=== PATIENT | male | born 1970 | race Caucasian/White ===

== ENCOUNTER 2018-12-27 18:26 | Emergency (ER) | payer OTHER ==
[~2018-12-27] VITALS: Ht 175.3 cm; Wt 97.3 kg
--- NOTE | 2018-12-27 18:45 | NUR ---
PT RESTING COMFORTABLE IN ROOM. NO ORDERS YET
--- NOTE | 2018-12-27 18:50 | NUR ---
PT WAS HIKING, TRIPPED OVER A ROOT AND FELL ON RIGHT ARM. NO OTHER COMPLAINTS. NO VISIBLE INJURIES.
--- NOTE | 2018-12-27 18:59 | NUR ---
FELL APPROX 6 HOURS AGO, ATE SANDWHICH 2 HOURS AGO AND HAS BEEN DRINKING WATER SINCE. NPO CURRENTLY
[2018-12-27 19:39] VITALS: BP 160/80
--- NOTE | 2018-12-27 20:01 | NUR ---
DC RN: PT SPLINT APPLIED AND CHECKED FOR CMS+. PT GIVEN SPLINT EDUCATIONS AND VERBALIZED UNDERSTANDING. PT TO BE SEEN BY [facility] PRIOR TO DC. Patient/Caregiver given discharge instructions and they have confirmed that they understand the instructions. Patient ambulatory with steady gait.
--- NOTE | 2018-12-27 20:22 | NUR ---
[facility] AT BEDSIDE
--- NOTE | 2018-12-27 20:25 | NUR ---
PT AWARE OF FOLLOW-UP, HAS COPY OF FILMS ON DISC, PT LIVES [facility]. AWARE OF F/U THERE, AWARE OF CARE OF SPLINT, CSM CHECKS, USE OF ICE. AMBULATE OUT WITH STEADY GAIT, FRIENDS TO DRIVE PT.
== END 2018-12-27 20:36 | disposition home or self-care (01) ==
LOC: ED 20:19
DX: S42.341A Displaced spiral fracture of shaft of humerus, right arm, initial encounter for closed fracture (principal); I10 Essential (primary) hypertension; W01.0XXA Fall on same level from slipping, tripping and stumbling without subsequent striking against object, initial encounter; Y93.01 Activity, walking, marching and hiking; Y92.89 Other specified places as the place of occurrence of the external cause; Y99.8 Other external cause status
CPT/HCPCS: 29105; 99283